=== PATIENT | male | born 2000 | race Caucasian/White ===

== ENCOUNTER 2021-02-04 09:02 | Emergency (ER) | payer BC, SELFPAY ==
[2021-02-04 09:12] VITALS: BP 162/70; PULSE 99; RESP 14; TEMP 36.9; O2SAT 100; BMI 20.1
[2021-02-04 09:25] LABS: UTC Strep Screen (Rapid) Negative (Negative)
--- NOTE | 2021-02-04 09:26 | HMH.EDUTC ---
[place] Disposition Clinical Impression: Bronchitis Pharyngitis Qualifiers: Pharyngitis/tonsillitis etiology: unspecified etiology Qualified Code(s): J02.9 - Acute pharyngitis, unspecified Disposition: Home, Self-Care Condition on Discharge: Good Instructions: DI for Pharyngitis/Tonsillopharyngitis -- Adult, DI for Acute Bronchitis Additional Instructions: Drink plenty of fluids. Take tylenol or ibuprofen for pain or fever. Take the medications as directed. Follow up with your regular doctor. GO TO THE ER FOR ANY WORSENING SYMPTOMS Prescriptions: Brompheniramine/Pseudoephed/Dm [Bromfed Dm Cough Syrup] 5 ml PO Q6HP PRN #240 syrup PRN Reason: Cough Transmission Status: Sent to [facility] predniSONE [Deltasone 10mg tablet] 10 mg PO BID 4 Days #8 tab Transmission Status: Sent to [facility] Azithromycin [Z-Jose L 250mg Tab*] 250 mg PO UD DOSE PK #6 tab Transmission Status: Sent to [facility] Referrals: PCP,No [Primary Care Provider] - Forms: Work/School Release Time of Disposition: : Medical Decision Making - Medical Records Medical records reviewed: No: I reviewed the patient's medical records. - Sahil Inquiry Pt receiving controlled substance: No Vital Signs: 02/04/21 09:12 Temperature 98.5 F Temperature Source Oral Pulse Rate [Right] 99 H Respiratory Rate 14 Blood Pressure [Right Arm] 162/70 H Blood Pressure Mean [Right Arm] 100 Blood Pressure Source [Right Arm] Automatic Cuff Blood Pressure Position [Right Arm] Sitting 02 Sat by Pulse Oximetry 100 Oxygen Delivery Method Room Air - Lab Data Lab results reviewed: Yes: I reviewed the patient's lab results. Lab Results 02/04/21 09:23: Strep Scn Rapid Clinic Negative Orders (Tests/Meds): ORDERS Category Date Time Status Strep Screen Confirmation Stat Micro 02/04/21 09:23 Received [place] HPI - General Stated complaint: congestion, sore throat Time Seen by Provider: 02/04/21 09:26 Mode of Arrival: Ambulatory Source of Information: Patient Limitations: No Limitations Description of Symptoms (Recalled from Triage Doc. by RN): pt c/o cough, congestion, and sore throat. HEENT Symptoms (Recalled from RN notes): Yes (runny nose, congestion and sore throat) Resp Symptoms (Recalled from RN notes): Yes (cough) Skin Symptoms (Recalled from RN notes): No MS Symptoms (Recalled from RN notes): No Functional Status (Recalled from RN notes): na - History of Present Illness Provider Complaint: He states that for the past 3 days he has been getting more and more congested in is chest and sinuses. - Related Data Previous Rx's Medication Instructions Recorded Azithromycin [Z-Jose L 250mg Tab*] 250 mg PO UD DOSE PK #6 tab 02/04/21 Brompheniramine/Pseudoephed/Dm 5 ml PO Q6HP PRN #240 syrup 02/04/21 [Bromfed Dm Cough Syrup] predniSONE [Deltasone 10mg tablet] 10 mg PO BID 4 Days #8 tab 02/04/21 Allergies Allergy/AdvReac Type Severity Reaction Status Date / Time Penicillins Allergy Verified 02/04/21 09:22 - Worker's Comp Is this a Worker's Comp case?: No [facility] History - Hepatitis A Screen Drug use history?: No High risk sexual behaviors?: No History of sexually transmitted infection?: No Currently employed?: No Childcare worker?: No Do you have indoor plumbing?: Yes Do you have electricity?: Yes Attestation statement:: This patient has been screened for Hepatitis A risk factors. I have reviewed the patient's past medical history: Yes ROS Obtained: Yes All systems reviewed & no additional complaints - Constitutional Constitutional: Reports body ache, Reports chills, Denies fever(s), Reports poor appetite, Reports malaise - Eyes Eyes: Denies eye discharge - ENT Ears, Nose, Mouth, and Throat: Reports as per HPI - Cardiovascular Cardiovascular: Denies chest pain - Respiratory Respiratory: Reports chest congestion, Reports cough, Denies stridor, Denies wheezing Phys
[2021-02-04 09:31] VITALS: BP 155/79; PULSE 98; RESP 14; TEMP 36.6
== END 2021-02-04 09:33 | disposition home or self-care (01) ==
PROVIDERS: Emergency Provider Nurse Practitioner Family
DX: Z20.822 Contact with and (suspected) exposure to COVID-19 (principal); J02.9 Acute pharyngitis, unspecified
CPT/HCPCS: 87880; 99202; G0463; U0003

== ENCOUNTER 2021-12-07 08:05 | Emergency (ER) | payer BC, SELFPAY ==
[2021-12-07 08:07] VITALS: BP 158/90; PULSE 95; RESP 18; TEMP 36.7; O2SAT 98; BMI 17.7
[2021-12-07 08:12] VITALS: BMI 17.7
--- NOTE | 2021-12-07 08:14 | XR_ITS ---
FINAL REPORT CLINICAL HISTORY: . punch wall this am FINDINGS: RIGHT HAND Three views demonstrate a transverse fracture of the fifth metacarpal diaphysis. There is palmar angulation of the distal fracture fragment. There is dorsal hand soft tissue swelling. No other fracture or dislocation. IMPRESSION: Fracture as above. Reviewed, Interpreted and Dictated by Papa Holland III, MD Transcribed by Dina Bateman Authenticated by Papa Holland III, MD on 12/07/2021 09:25:12 AM [facility]
--- NOTE | 2021-12-07 08:25 | HMH.EDGENADL ---
[place] Disposition Clinical Impression: Fracture of fifth metacarpal bone Qualifiers: Encounter type: initial encounter Fracture type: closed Metacarpal location: shaft Fracture alignment: displaced Laterality: right Qualified Code(s): S62.326A - Displaced fracture of shaft of fifth metacarpal bone, right hand, initial encounter for closed fracture Disposition: Home, Self-Care Condition on Discharge: Good Instructions: DI for Boxer's Fracture, How to Take Care of Your Splint Additional Instructions: Take Tylenol or ibuprofen for pain. Additional instructions for FRACTURED (BROKEN) BONE: See Dr. Irvin 12/09/21 at 11:30 am. Treat your splint like you would a cast: Do not get it wet (cover with a plastic bag while bathing or showering). If the splint feels too tight, you may loosen the jackie wrap covering it, but do not remove the splint. You may ice the fracture by applying an ice pack over the top of the splint, without removing the splint. Return to an emergency department immediately if you have uncontrollable pain, loss of feeling or inability to move your injured extremity. Referrals: Provider,MD Hilario [Primary Care Provider] - Jacky Irvin JR, MD [Physician] - - Critical Care Critical Care Time: No Attestation: On 12/07/21, the high probability of a clinically significant, sudden or life threatening deterioration of the following system(s) required my full and direct attention, intervention and personal management. The time I documented below is in addition to time spent performing reported procedures but includes the following listed in this critical care notation. Medical Decision Making - Sahil Inquiry Pt receiving controlled substance: No Vital Signs: 12/07/21 08:07 Temperature 98.1 F Temperature Source Oral Pulse Rate [Left Radial] 95 H Respiratory Rate 18 Blood Pressure [Left Arm] 158/90 H Blood Pressure Mean [Left Arm] 112 Blood Pressure Source [Left Arm] Automatic Cuff Blood Pressure Position [Left Arm] Sitting 02 Sat by Pulse Oximetry 98 Oxygen Delivery Method Room Air Orders (Tests/Meds): ORDERS Category Date Time Status XR hand RT min 3V Stat Exams 12/07/21 08:14 Taken General Adult HPI - General Stated complaint: possible pinky finger break Time Seen by Provider: 12/07/21 08:25 - History of Present Illness HPI narrative: Patient states that he punched a wall about 30 minutes ago because he had a bad day at work. He does not feel to be a danger to himself or others. He has no injuries except for his right hand. He has some deformity and pain over the region of his fifth metacarpal. - Related Data Previous Rx's Medication Instructions Recorded Azithromycin [Z-Jose L 250mg Tab*] 250 mg PO UD DOSE PK #6 tab 02/04/21 Brompheniramine/Pseudoephed/Dm 5 ml PO Q6HP PRN #240 syrup 02/04/21 [Bromfed Dm Cough Syrup] predniSONE [Deltasone 10mg tablet] 10 mg PO BID 4 Days #8 tab 02/04/21 Allergies Allergy/AdvReac Type Severity Reaction Status Date / Time Penicillins Allergy Verified 02/04/21 09:22 [facility] History - Hepatitis A Screen Attestation statement:: This patient has been screened for Hepatitis A risk factors. I have reviewed the patient's past medical history: Yes - Social History Smoking Status: Never smoker Alcohol Intake: never Occupational Status: employed ROS Obtained: Yes Systems reviewed as appropriate & no additional complaints - Musculoskeletal Musculoskeletal: Reports as per HPI - Neurologic Neurologic: Denies numbness, Denies weakness Physical Exam - General General appearance: alert, in no apparent distress - Respiratory Respiratory exam: Absent: respiratory distress - Cardiovascular Cardiovascular exam: Present: regular rate - Expanded Upper Extremity Exam Right Hand exam: Present: tenderness, swelling, deformity. Absent: abrasion, laceration, skin avulsion, ecchymosis, crepitus Comment: [facility]
--- NOTE | 2021-12-07 08:31 | PC.NURSE ---
follow up appt made for pt with dr. george (ortho) for Sunday at [id number]
[2021-12-07 08:55] VITALS: BP 158/90; PULSE 95; RESP 18; TEMP 36.7; O2SAT 98
== END 2021-12-07 08:55 | disposition home or self-care (01) ==
PROVIDERS: Emergency Provider Emergency Medicine
DX: S62.326A Displaced fracture of shaft of fifth metacarpal bone, right hand, initial encounter for closed fracture (principal); W22.09XA Striking against other stationary object, initial encounter
CPT/HCPCS: 29125; 73130; 99284

== ENCOUNTER → 2021-12-09 12:28 | Outpatient (CLI) | payer BC, SELFPAY ==
--- NOTE | 2021-12-09 12:34 | XR_ITS ---
FINAL REPORT CLINICAL HISTORY: right 5th MC fx COMPARISON: December 07, 2021 FINDINGS: 3 views of the right hand were obtained. There has been interval placement of a cast which obscures detail. There is a 5th metacarpal fracture with mild palm are angulation of the distal fracture fragment. There is no evidence of callus formation. The joint spaces are intact. There is no soft tissue abnormality. IMPRESSION: Fifth metacarpal fracture with overlying cast. Reviewed, Interpreted and Dictated by Papa Holland III, MD Transcribed by Gabriel Camejo Authenticated by Papa Holland III, MD on 12/09/2021 01:38:02 PM [facility]
== END ==
PROVIDERS: Visit Provider Orthopaedic Surgery
DX: S62.326A Displaced fracture of shaft of fifth metacarpal bone, right hand, initial encounter for closed fracture (principal)
CPT/HCPCS: 73130

== ENCOUNTER → 2021-12-16 10:14 | Outpatient (CLI) | payer BC, SELFPAY ==
--- NOTE | 2021-12-16 10:18 | XR_ITS ---
FINAL REPORT CLINICAL HISTORY: Rt 5th MC fracture COMPARISON: December 09, 2021 FINDINGS: RIGHT HAND Three views were obtained. Overlying cast material obscures bony detail. Again seen is a fracture of the mid diaphysis of the 5th metacarpal with mild palmar angulation of the distal fracture fragment. There is no significant change in alignment. No significant callus formation is identified. IMPRESSION: Redemonstration of 5th metacarpal fracture with overlying cast material. Reviewed, Interpreted and Dictated by Papa Holland III, MD Transcribed by Gabriel Camejo Authenticated by Papa Holland III, MD on 12/16/2021 12:47:43 PM [facility]
== END ==
PROVIDERS: Visit Provider Orthopaedic Surgery
DX: S62.308A Unspecified fracture of other metacarpal bone, initial encounter for closed fracture (principal)
CPT/HCPCS: 73130

== ENCOUNTER → 2021-12-30 09:01 | Outpatient (CLI) | payer BC, SELFPAY ==
--- NOTE | 2021-12-30 09:04 | XR_ITS ---
FINAL REPORT CLINICAL HISTORY: fracture of 5th metacarpal bone; patient punch wall COMPARISON: December 09, 2021; December 16, 2021 FINDINGS: 3 views of the right hand were obtained. The cast has been removed. There is a transverse fracture through the mid-diaphysis of the 5th metacarpal. There is mild volar angulation. There is callus formation at the margins. IMPRESSION: Healing mid 5th metacarpal fracture post cast removal. Reviewed, Interpreted and Dictated by Roque Randle MD Transcribed by Gabriel Cameoj Authenticated by Roque Randle MD on 12/30/2021 10:36:38 AM [facility]
== END ==
PROVIDERS: Visit Provider Orthopaedic Surgery
DX: S62.308A Unspecified fracture of other metacarpal bone, initial encounter for closed fracture (principal)
CPT/HCPCS: 73130

== ENCOUNTER 2021-12-30 10:02 | Outpatient (RCR) | payer BC, SELFPAY | END 2021-12-30 11:05 | disposition home or self-care (01) | LOC: OT 10:02 | PROVIDERS: Visit Provider Orthopaedic Surgery | DX: S62.308A Unspecified fracture of other metacarpal bone, initial encounter for closed fracture (principal) | CPT/HCPCS: 97760 ==